=== PATIENT | male | born 1955 | race Caucasian/White ===

== ENCOUNTER 2018-03-06 17:32 | Emergency (ER) | payer MEDICAID, OTHER | END 2018-03-06 19:55 | disposition home or self-care (01) | LOC: FTE 17:32 | DX: S20.212A Contusion of left front wall of thorax, initial encounter (principal); E11.9 Type 2 diabetes mellitus without complications; V11.9XXA Unspecified pedal cyclist injured in collision with other pedal cycle in traffic accident, initial encounter; Z79.82 Long term (current) use of aspirin; Z79.84 Long term (current) use of oral hypoglycemic drugs; Z87.891 Personal history of nicotine dependence | CPT/HCPCS: 71100; 99283-25 ==